=== PATIENT | female | born 1985 | race Caucasian/White ===

== ENCOUNTER 2023-07-13 10:57 | Day surgery (SDC) | payer OTHER ==
[~2023-07-13 10:57] MED LIST: DEXAMETHASONE SOD PHOSPHATE 4 MG/ML 1 ML VIAL IV ONE; FAMOTIDINE 20 MG/2 ML VIAL IV PRN; HYDROmorphone 0.5 MG/0.5 ML SYRINGE IVP PRN; LACTATED RINGERS 1,000 ML IV SCH; LIDOCAINE 1% (10MG/ML) FOR IV START INTRADERMA PRN; MIDAZOLAM 2 MG/2 ML VIAL IV PRN; ONDANSETRON 4 MG/2 ML VIAL IVP PRN
[2023-07-13] MEDS: OXYMETAZOLINE 0.05% NASL SPRAY 1 SPRAY BOTTLE EA NOSTRIL PRN ×5 (11:30→11:52)
[2023-07-13] MEDS ORDERED: PROPOFOL 10 MG/ML 20 ML VIAL IV ONE (12:17)
[2023-07-13] MEDS ORDERED: fentaNYL (PF) 50 MCG/ML 2 ML AMP ONE (12:17)
[2023-07-13] MEDS ORDERED: MIDAZOLAM 2 MG/2 ML VIAL ONE (12:17)
[2023-07-13] MEDS ORDERED: SUCCINYLCHOLINE CHLORIDE 200 MG/10 ML VIAL IV ONE (12:17)
[2023-07-13] MEDS ORDERED: LIDOCAINE 1% INJ 10MG/ML (20 ML MDV) ONE (12:17)
[2023-07-13] MEDS ORDERED: LIDOCAINE 1%-EPI 1:100,000 20 ML VIAL SQ ONE ×2 (12:39)
[2023-07-13] MEDS ORDERED: BACITRACIN ZINC 500 UNIT/GM OINT 28.4 GM TUBE TOPICAL ONE (12:39)
--- NOTE | 2023-07-13 13:24 | P.OP ---
Date of Procedure: 07/13/23 Preoperative Diagnosis: Deviated nasal septum Inferior turbinate hypertrophy Chronic sinusitis Postoperative Diagnosis: Same Procedure(s) Performed: Septoplasty Outfractured and submucous resection of the inferior turbinates Bilateral endoscopic sinus surgery including bilateral maxillary antrostomy with removal of tissue maxillary sinuses, bilateral sphenoidotomy with removal of tissue from the sphenoid sinuses Anesthesia: KIT Surgeon: Cornelius Zaidi Estimated Blood Loss (ml): 10 Pathology: other (Nasal septal bone and cartilage and sinus contents) Condition: stable Disposition: PACU Indications for Procedure: Is a 38-year-old white female who has difficulties with chronic nasal airway obstruction congestion ALLERGIES and chronic sinusitis with recurrent infections. Operative Findings: Nasal septum deviated to the right anteriorly to the left posteriorly the inferior turbinates are hypertrophied bilaterally. Maxillary ostia were obstructed bilaterally with small polyps in the maxillary sinuses the sphenoid sinuses were also obstructed with small polyps in the sphenoid sinuses also bilaterally
[2023-07-13 13:41] VITALS: TEMP 97.2
[2023-07-13 14:08] VITALS: RESP 16
[2023-07-13 15:27] VITALS: BP 124/83; PULSE 73
== END 2023-07-13 15:23 | disposition home or self-care (01) ==
LOC: OR 10:57
PROVIDERS: ATTEND Otolaryngology
DX: J32.8 Other chronic sinusitis (principal); J34.3 Hypertrophy of nasal turbinates; J34.2 Deviated nasal septum
CPT/HCPCS: 30140; 30520; 31267; 31288; 81025; 88305; 88300; J2250; J0330; J1100; J0690; J2405; J2001; J3010; J3490; J2704; J1170